=== PATIENT | female | born 1950 | race Caucasian/White ===

== ENCOUNTER 2018-12-07 11:50 | Emergency (ER) | payer MEDICARE ==
[~2018-12-07] VITALS: Ht 157.5 cm; Wt 71.4 kg
[2018-12-07 12:06] VITALS: Ht 157.5 cm; Wt 71.4 kg
[2018-12-07] MEDS ORDERED: ASPIRIN81 MG PO (12:09)
[2018-12-07] MEDS ORDERED: TRAZODONE HCL150 MG PO (12:10)
[2018-12-07] MEDS ORDERED: LIPITOR20 MG PO (12:10)
[2018-12-07] MEDS ORDERED: TENORMIN50 MG PO (12:11)
[2018-12-07] MEDS ORDERED: LISINOPRIL-HCT1 EAC4 PO (12:11)
[2018-12-07] MEDS ORDERED: SYNTHROID75 MCG PO (12:11)
[2018-12-07] MEDS ORDERED: VITAMIN D31000 UNI2 PO (12:12)
[2018-12-07 12:43] LABS: HEMATOCRIT 42.3 % (36.0-48.0); HEMOGLOBIN 13.9 g/dL (12-16); MCH 28.4 pg (26.0-34.0); MCHC 32.9 g/dL (31.0-37.0); MCV 86.5 fL (80.0-100.0); MEAN PLATELET VOLUME 12.7 fL (7.4-10.4); PLATELET COUNT 205 10x3/uL (130-400); RBC 4.89 10x6/uL (4.00-5.40); RDW 14.9 % (11.5-14.5); WBC 7.7 10x3/uL (4.8-10.8)
[2018-12-07 12:59] LABS: ALBUMIN 3.7 g/dL (3.4-5.0); ANION GAP 12.8 mmol/L (8-16); BILIRUBIN - TOTAL 0.12 mg/dL (0.2-1.3); CALCIUM 8.8 mg/dL (8.5-10.1); CARBON DIOXIDE 28.7 mmol/L (21.0-32.0); CREATININE - SERUM 1.9 mg/dL (0.6-1.3); POTASSIUM - SERUM 3.5 mmol/L (3.5-5.1); PROTEIN - SERUM 7.5 g/dL (6.4-8.2)
[2018-12-07 13:02] LABS: APPEARANCE SL CLDY (CLEAR); COLOR YELLOW (YELLOW); GLUCOSE NEGATIVE (NEGATIVE); KETONE NEGATIVE (NEGATIVE); NITRITE NEGATIVE (NEGATIVE); PROTEIN NEGATIVE (NEGATIVE); SPECIFIC GRAVITY 1.015 (1.005-1.020); UROBILINOGEN NORMAL (NORMAL)
[2018-12-07 13:03] LABS: BACTERIA MANY /hpf (NONE SEEN); BILIRUBIN NEGATIVE (NEGATIVE); EPITHELIAL CELLS 0-5 /hpf (0-5); GRANULAR CAST RARE /lpf (NONE SEEN); HYALINE CAST 0-5 /lpf (NONE SEEN); MUCUS <1+ /lpf (NONE SEEN); RED CELLS - URINE 0-5 /hpf (0-5); WHITE CELLS - URINE OCC /hpf (0-5)
[2018-12-07 14:00] LABS: EOSINOPHILS 2 % (0-7); LYMPHOCYTES 54 % (15-50); MONOCYTES 16 % (2-11); NEUTROPHILS 25 % (40-80); PLATELET ESTIMATE NORMAL
[2018-12-07] MEDS ORDERED: GUAIFENESI100 MG/5 M PO (15:02)
[2018-12-07] MEDS ORDERED: TAMIFLU75 MG PO (15:02)
[2018-12-07 15:37] VITALS: BP 116/48
== END 2018-12-07 15:37 | disposition home or self-care (01) ==
LOC: D.ER 11:50
PROVIDERS: Family Medicine
DX: J09.X2 Influenza due to identified novel influenza A virus with other respiratory manifestations (principal); N28.9 Disorder of kidney and ureter, unspecified; R05 Cough